=== PATIENT | male | born 1945 | race Caucasian/White ===

== ENCOUNTER 2022-07-31 07:48 | Day surgery (SDC) | payer OTHER, MEDICARE ==
[2022-07-27 10:14] VITALS: BMI 21.7
[2022-07-31] MEDS ORDERED: PROPOFOL 120 ML ONE (08:05)
[2022-07-31 08:18] VITALS: TEMP 97.1
[2022-07-31 10:00] VITALS: RESP 16
[2022-07-31 10:03] VITALS: BP 100/60; PULSE 70
== END 2022-07-31 10:15 | disposition home or self-care (01) ==
LOC: FASU-ENDO 07:48
PROVIDERS: ATTEND Internal Medicine Gastroenterology
PROC: 0DBL8ZX Excision of Transverse Colon, Via Natural or Artificial Opening Endoscopic, Diagnostic (ICD-10-PCS; principal; 2022-07-31 09:16)
DX: Z12.11 Encounter for screening for malignant neoplasm of colon (principal); D12.3 Benign neoplasm of transverse colon; K64.1 Second degree hemorrhoids; K57.30 Diverticulosis of large intestine without perforation or abscess without bleeding
CPT/HCPCS: 88305-TC